=== PATIENT | female | born 1995 | race Two or more races ===

== ENCOUNTER 2019-09-03 02:59 | Emergency (ER) | payer MEDICAID ==
[~2019-09-03] VITALS: Ht 149.9 cm; Wt 55.3 kg
[2019-09-03 03:11] VITALS: BP 122/76
== END 2019-09-03 04:59 | disposition home or self-care (01) ==
LOC: ER 03:05
DX: L02.811 Cutaneous abscess of head [any part, except face] (principal)

== ENCOUNTER 2024-01-27 12:54 | Emergency (ER) | payer MEDICAID ==
[~2024-01-27] VITALS: Ht 149.9 cm; Wt 56.4 kg
[2024-01-27 15:18] LABS: Basophils # (auto) 0 10 ^3/uL (0-0.2); Basophils % (auto) 0.3 % (0.0-2.0); Eosinophils # (auto) 0.1 10 ^3/uL (0-0.8); Eosinophils % (auto) 0.7 % (0.0-7.0); Hematocrit 41.3 % (36.0-46.0); Lymphocytes # (auto) 2.9 10 ^3/uL (0.4-5.4); Lymphocytes % (auto) 30.7 % (10.0-50.0); Mean Corpuscular Hemoglobin 31.9 pg (28.0-32.0); Mean Corpuscular Hgb Conc. 33.9 g/dL (32.0-36.0); Mean Corpuscular Volume 93.9 fL (80.0-100.0); Monocytes # (auto) 0.8 10 ^3/uL (0-1.3); Monocytes % (auto) 8.2 % (0.0-12.0); Neutrophils # (auto) 5.7 10 ^3/uL (1.6-8.6); Neutrophils % (auto) 60.1 % (37.0-80.0); Red Cell Distribution Width 12.4 % (11.8-14.3); White Blood Cell 9.5 10^3/uL (4.4-10.8)
[2024-01-27 15:31] LABS: Chloride 104 mmol/L (98-107); Potassium 4.3 mmol/L (3.5-5.1); Sodium 138 mmol/L (136-145)
[2024-01-27 15:32] LABS: Anion Gap 3 (5-15); Calcium 9.6 mg/dL (8.7-10.4); Carbon Dioxide 31 mmol/L (20-30)
[2024-01-27 15:37] LABS: BUN/Creatinine Ratio 30.3 (10.0-20.0); Blood Urea Nitrogen 20 mg/dL (9-23); Glucose 89 mg/dL (74-106)
[2024-01-27 19:45] VITALS: BP 113/73; PULSE 69; RESP 18; TEMP 98; O2SAT 98
== END 2024-01-27 19:47 | disposition home or self-care (01) ==
LOC: ER 12:54
DX: R51.9 Headache, unspecified (principal); R10.2 Pelvic and perineal pain; R42 Dizziness and giddiness
CPT/HCPCS: 36415; 70450; 80048; 84702; 85025